=== PATIENT | female | born 1995 | race Hispanic/Latino ===

== ENCOUNTER 2022-08-26 10:20 | Emergency (ER) | payer OTHER ==
[~2022-08-26] VITALS: Ht 162.6 cm; Wt 56.7 kg
[2022-08-26] MEDS ORDERED: KETOROLAC 15MG/ML VIAL (15MG/ML) IM ONE (11:00)
[2022-08-26] MEDS ORDERED: ACET160S2 PO (12:06)
[2022-08-26 12:30] VITALS: BP 118/76
== END 2022-08-26 12:47 | disposition home or self-care (01) ==
LOC: EDH 10:20
DX: S93.492A Sprain of other ligament of left ankle, initial encounter (principal); X58.XXXA Exposure to other specified factors, initial encounter; Y93.89 Activity, other specified; Y92.89 Other specified places as the place of occurrence of the external cause; Y99.8 Other external cause status
CPT/HCPCS: 99284; 81025; 73610; 96372; J1885